=== PATIENT | female | born 2000 | race Caucasian/White ===

== ENCOUNTER 2019-02-16 10:46 | Emergency (ER) | payer OTHER ==
[2019-02-16 10:51] VITALS: BP 121/69; PULSE 68; TEMP 98.6; BMI 31.6
[2019-02-16 11:21] LABS: EPITHELIAL CELLS FEW /hpf
--- NOTE | 2019-02-16 11:24 | PDOC ---
History of Present Illness - General Chief Complaint: Pain, Acute Stated Complaint: ABD PAIN Time Seen by Provider: 02/16/19 11:10 - History of Present Illness Initial Comments: 02/16/19 11:26 Chief complaint: Left lower quadrant pain HPI: Intermittent sharp left lower quadrant pain for approximately 1 week. This has been accompanied by spotting for the last several days. She felt nausea today and had one episode of vomiting, without blood. Bowel movements have been normal, no diarrhea, mucus, bloody stool, or melena. Review of systems: Denies fever/chills, headache, URI symptoms, sore throat, cough, chest pain, shortness of breath, constipation, diarrhea, hematemesis, melena, bloody stool, dysuria or other urinary tract symptoms except for more frequent urination recently, vaginal discharge, itching, or burning. No visual or focal neurologic symptoms or unsteadiness of gait. No lightheadedness or dizziness. Remainder of systems reviewed and found to be negative Past medical history: Crohn's disease, in remission for the last 3 to 4 years, on no maintenance medication. Disease was severe prior to that and treated with biologicals. No recent follow-up but no recent symptoms. 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 Last menstrual period January 22, usually regular, should be due soon. No prior pregnancies, other GI or diseases. Attempting to get now, sexually active and not using control. Social history: Occasional social alcohol, none recently. No tobacco or nonprescription drugs. Works as a frame welder cargo utility trailers. Normally active. Family history: Mother and sister with "ovarian cysts". Otherwise negative Physical exam: Alert and oriented well-developed well-nourished no acute distress cheerful and cooperative. No significant pain at present Afebrile, vital signs normal PERRLA, fundi benign, conjunctivae, ENT clear Neck supple without bruit or nodes. There is diffusely enlarged thyroid palpable without nodules, no sign of inflammation or tenderness Chest clear to PNA CV regular without murmur rub or gallop Abdomen nondistended. Bowel sounds normal. Soft without mass organomegaly. There is mild pain to deep palpation in the left pelvic region without guarding or rebound. There is no CVAT Neurological intact Extremities no CCE Skin clear, no rash, adequate turgor and wet mucous membranes Impression: Possible mittelschmerz, ruptured ovarian cyst, , ectopic, UTI, or recurrent Crohn's disease with sigmoid involvement. Plan: Urinalysis, hCG, CBC and chemistries. Pelvic examination. Further evaluation and treatment depending on results. Past History - Past Medical History Allergies/Adverse Reactions: Allergies Allergy/AdvReac Type Severity Reaction Status Date / Time No Known Allergies Allergy Verified 02/16/19 10:47 Home Medications: Ambulatory Orders Adalimumab [Humira] 0 mg SQ WEEKLY 02/16/19 COPD: No - Psycho Social/Smoking Cessation Hx Smoking History: Never smoked Hx Alcohol Use: Yes (OCASIONAL) Drug/Substance Use Hx: No *Physical Exam - Vital Signs Last Vital Signs Temp Pulse Resp BP Pulse Ox 98.6 F 68 18 121/69 100 02/16/19 10:47 02/16/19 10:47 02/16/19 10:47 02/16/19 10:47 02/16/19 10:47 ED Treatment Course - LABORATORY CBC & Chemistry Diagram: 02/16/19 11:29 02/16/19 11:29 - ADDITIONAL ORDERS Additional order review: Laboratory Results 02/16/19 02/16/19 10:55 10:55 Urine Color Yellow Urine Appearance Clear Urine pH 7.5 Urine Protein Negative Urine Glucose (UA) Negative Urine Ketones Negative Urine Blood Trace-intact Urine Nitrite Negative Urine Bilirubin Negative Urine Urobilinogen 0.2 Ur Leukocyte Esterase Negative Urine HCG, Qual Negative Medical Decision Making - Medical Decision Making 02/16/19 14:14 CBC, chemistries, and urinalysis without significant abnormalities. Small amount of blood in the urine likely due to spotting. hCG negative Ultrasound was negative as well Most likely etiology of the patient's pain is a small ovarian cyst that has ruptured, not evident on sonogram Other possibility is a flareup of Crohn's disease, although the patient has been successfully maintained on Humira for over 3 years and has been in complete remission, without bowel symptoms. She is instructed to see OR NURSE MANAGER physician and registration coordinator if pain persists or worsens, is fully ambulatory and without pain at discharge. Discharge - Discharge Information Problems reviewed: Yes Clinical Impression/Diagnosis: Ovarian cyst Qualifiers: Laterality: left Qualified Code(s): N83.202 - Unspecified ovarian cyst, left side Condition: Stable Disposition: HOME - Admission No - Follow up/Referral - Patient Discharge Instructions Patient Printed Discharge Instructions: DI for Ovarian Cyst Additional Instructions: Motrin or Aleve for pain After your next menses, the pain should resolve. If the pain persists or worsen , it is necessary to see an OR NURSE MANAGER specialist for further evaluation and treatment Even though you are on medication for your Crohn's disease, and you do not have diarrhea or blood/mucus in the stool, it is still possible that this is an early flareup of your Crohn's. It is recommended you see your registration coordinator for further evaluation as well. - Post Discharge Activity
[2019-02-16 11:47] LABS: BASO % 0.8 % (0-2.0); EOS % 0.2 % (0-4.5); HEMATOCRIT 38.4 % (32.4-45.2); HEMOGLOBIN 12.7 GM/dl (10.7-15.3); LYMPH % 9.9 % (8-40); MCH 28.6 pg (25.7-33.7); MCHC 33.1 g/dl (32.0-36.0); MEAN CELL VOLUME 86.5 fl (80-96); MEAN PLT VOLUME 10.3 fl (7.5-11.1); MONO % 2.7 % (3.8-10.2); NEUT % 86.4 % (42.8-82.8); PLATELET COUNT 272 K/MM3 (134-434); RBC 4.44 M/mm3 (3.60-5.2); RDW 12.1 % (11.6-15.6); WHITE BLOOD COUNT 8.9 K/mm3 (4.0-10.8)
[2019-02-16 11:56] LABS: ALBUMIN 3.9 g/dl (3.4-5.0); BILIRUBIN,TOTAL 0.5 mg/dl (0.2-1); CALCIUM 8.8 mg/dl (8.5-10); CREATININE 0.6 mg/dl (0.55-1.3); POTASSIUM 4.1 mmol/L (3.5-5.1); TOT PROT 8.2 g/dl (6.4-8.2)
--- NOTE | 2019-02-18 15:19 | PDOC ---
Patient Follow-up (Call Back) - Post ED Follow - Up Condition at time of discharge: Stable Disposition at time of original discharge: HOME - Disposition Additional Instructions/Notes: Patient contacted by phone. Specimen for GC chlamydia was not processed by the lab due to improper filling of the container. The patient was instructed to return to the ER to submit another specimen. She agreed to return on Thursday for reprocessing of her urine.
== END 2019-02-16 14:22 | disposition home or self-care (01) ==
LOC: FER 10:46
DX: N83.202 Unspecified ovarian cyst, left side (principal)
CPT/HCPCS: 36415; 76856-TC; 80053; 81003; 81015; 84703; 85025; 87491; 87591; 99282-25